=== PATIENT | female | born 1985 | race Caucasian/White ===

== ENCOUNTER → 2022-10-21 13:51 | Outpatient (BNVA) | payer OTHER, SELFPAY | PROVIDERS: PCP Internal Medicine; Visit Provider Nurse Practitioner Family | DX: G43.109 Migraine with aura, not intractable, without status migrainosus (principal); G47.9 Sleep disorder, unspecified | CPT/HCPCS: 99212 ==

== ENCOUNTER 2024-01-19 12:31 | Outpatient (AMB) | payer OTHER, SELFPAY ==
--- NOTE | 2024-01-19 13:02 | A.OFFVIS_ITS ---
Vital Signs 01/19/24 13:05 Height 5 ft 2 in Weight 233 lb BMI 42.6 BP 130/92 H Blood Pressure Location Rt brachial Position Sitting Pulse 91 Pulse Source Pulse Oximeter Pulse Oximetry (%) 100 Oxygen Delivery Method Room Air Intake Visit Reasons: f/u appt Intake Note: Patient presents for follow up. migraines are well controlled not getting them everyday as like before Allergies cats/mice Allergy (Unknown, Uncoded 01/19/24 13:06) Hives pollen/dust Allergy (Unknown, Uncoded 01/19/24 13:06) Unknown Medication List - Last Reconciled 01/19/24 by ARGENIS Wakefield ammonium lactate 12% topical BEDTIME budesonide mg inhalation BID budesonide-formoterol 160-4.5 mcg/actuation (Symbicort) 2 puffs inhalation BID wszpdhyzwy-rggrzdfbnyvrt-lhpy 50-325-40 mg 1 tab PO Q4H PRN 30 days cetirizine 10 mg PO Q12H PRN cyclobenzaprine 10 mg PO BEDTIME PRN cyclobenzaprine 10 mg PO BEDTIME ergocalciferol (vitamin D2) 1,250 mcg PO QWEEK escitalopram oxalate (Lexapro) 5 mg PO DAILY gabapentin 400 mg PO TID hydroxyzine HCl 25 mg PO BID PRN mometasone 0.1% appl topical BID PRN montelukast 10 mg PO DAILY omeprazole 40 mg PO DAILY rizatriptan 5 - 10 mg (0.5 - 1 x 10 mg) PO Q2H PRN 21 days sumatriptan succinate 50 - 100 mg orally at onset of headache, may repeat in 2 hrs PRN; max 2 tabs per day or 4 tabs/week (may take with Tylenol) 30 days topiramate 1 tab qhs x's 2 weeks then 2 tabs qhs orally bedtime; 30 days valacyclovir 500 mg PO BID HPI Comments Details: 38-yr-old female presents for f/u visit. Pt reports she has been having increased stress in the last year related to her child's health issues and work. She has also been having mid-chest pain, headaches, and depression. A few months ago, stopped most of her medications. She had stress test- which was normal. She has been started on escitalopram. She continues to have a daily headache with 3-4 migraine days per week. She has also been having a new headache since August- different from the daily headache or migraine. The pressure headache is in bifrontal, left temporal. A/w eye pain/pressure, ear pressure/pain, watery eyes, ear fullness/sound, bilateral jaw/teeth pain, allodynia, rarely (2-3 x's) worsening tingling in the left 4th/5th fingers. This can occur while sleeping or at work or driving. Cannot drive with this headache. Occurs 2-3 x's per week, but fluctuates week to week. Taking Fioricet 2-3 caps per week. The fioricet takes the pressure off of theses but the headache comes back after 6 hours or so. She stopped the topiramate- helped but stopped a few months ago, maybe in August, when she stopped her other meds. Rizatriptan does help- tends to take when she knows that the migraine will be more severe. Baseline migraine headache characteristics: Migraine can throbbing bifrontal or anywhere in the head a/w photophobia, phonophobia, N/V, beverly ear fullness, allodynia, activity intolerance. [facility] Medical History (Updated 01/19/24 @ 13:50 by ARGENIS Wakefield) BPPV (benign paroxysmal positional vertigo) Depression Asthma Anemia Surgical History History of bunionectomy History of right oophorectomy S/P gastric sleeve procedure H/O: hysterectomy Family History Father HTN (hypertension) Diabetes Stroke Anemia Arthritis Mother HTN (hypertension) Diabetes Social History Alcohol intake: never Patient Tobacco Use Status: Never used Tobacco Physical Exam Vital Signs: Last Vital Signs Pulse 91 01/19/24 13:05 BP 130/92 H 01/19/24 13:05 Pulse Ox 100 01/19/24 13:05 Oxygen Delivery Method Room Air 01/19/24 13:05 BMI result Body Mass Index 42.6 Const General: cooperative and no acute distress Orientation/consciousness: patient oriented x3 Resp Effort & Inspection: normal respiratory effort and able to speak in complete sentences Neuro General: patient oriented x3 Cranial nerves: Yes CN's II-XII intact bilaterally Cognition (Neuro): normal cognition Psych Appearance: grossly normal Mental Status: mental status grossly normal Speech and movement: Normal speech and movement present Affect: normal affect Attitude: cooperative Assessment & Plan Assessment & Plan (1) Migraine with aura: Code(s): G43.109 - Migraine with aura, not intractable, without status migrainosus Category: Medical (2) Eye pain: Code(s): H57.10 - Ocular pain, unspecified eye Category: Medical (3) New onset headache: Code(s): R51.9 - Headache, unspecified Category: Medical Plan Pt advised to undergo: Brain MRI w/wo d/t worsening headache w/ eye and ear pain. Optometry evaluation. For acute migraine tx: Continue Rizatriptan 10mg prn. Previous tx trials: Sumatriptan 100mg tab- not tolerated.. ? For migraine prevention: Resume Topiramate. Previous migraine tx trials- Amitriptyline- some effect but may cause weight gain. Migraine tx contraindications- BBs d/t symptomatic asthma dx ? For sleep difficulties- Hydroxyzine prn Pt may benefit from reading Say Mallory to Insomnia by Dr Jordan Figueroa or similar CBTi book. Orders: Orders MR head/brain wo/w con 01/19/24 H57.10 - Ocular pain, unspecified eye, H93.8X9 - Other specified disorders of ear, unspecified ear, R51.9 - Headache, unspecified Referrals Optometry Referral G43.109 - Migraine with aura, not intractable, without status migrainosus, H57.10 - Ocular pain, unspecified eye Medications: New magnesium oxide may hold for loose stools 400 mg PO BEDTIME 30 days 30 tabs 6RF alprazolam 0.25 mg orally 1 tab 30 minutes prior to MRI, may repeat x's 1; 1 day 2 tabs 0RF riboflavin (vitamin B2) 400 mg PO DAILY 30 days 30 tabs 6RF Refilled topiramate 1 tab qhs x's 2 weeks then 2 tabs qhs orally bedtime; 30 days 60 tabs 3RF rizatriptan max 2 tabs per day or 4 tabs per week 5 - 10 mg (0.5 - 1 x 10 mg) PO Q2H 21 days PRN 12 tabs 6RF migraine headache Discontinued sumatriptan succinate Discontinued Reason: Doctor's Order (0.5 - 1 x 100 mg) 50 - 100 mg orally at onset of headache, may repeat in 2 hrs PRN; max 2 tabs per day or 4 tabs/week (may take with Tylenol) 30 days 12 tabs 6RF migraine headache Coding Level of Care Code Est Pt Level 4 (71812) Diagnoses Migraine with aura G43.109 Eye pain H57.10 New onset headache R51.9
[2024-01-19 13:05] VITALS: BP 130/92; PULSE 91; O2SAT 100; BMI 42.6
== END 2024-01-19 13:56 | disposition home or self-care (01) ==
PROVIDERS: PCP Internal Medicine; Visit Provider Nurse Practitioner Family
DX: G43.109 Migraine with aura, not intractable, without status migrainosus (principal); H57.10 Ocular pain, unspecified eye; R51.9 Headache, unspecified
CPT/HCPCS: 99214

== ENCOUNTER → 2024-01-19 12:31 | Outpatient (BNVA) | payer OTHER, SELFPAY | PROVIDERS: PCP Internal Medicine; Visit Provider Nurse Practitioner Family | DX: G43.109 Migraine with aura, not intractable, without status migrainosus (principal); H57.10 Ocular pain, unspecified eye; R51.9 Headache, unspecified | CPT/HCPCS: 99212 ==

== ENCOUNTER 2025-01-11 08:00 | Outpatient (AMB) | payer OTHER, MEDICAID, SELFPAY ==
--- NOTE | 2025-01-11 08:02 | A.OFFVIS_ITS ---
Vital Signs 01/11/25 08:03 Height 5 ft 2 in Weight 246 lb 6 oz BMI 45.1 BP 122/82 Blood Pressure Location Lt brachial Position Sitting Pulse 94 Pulse Source Pulse Oximeter Pulse Oximetry (%) 100 Oxygen Delivery Method Room Air Intake Visit Reasons: Chronic migraine for 2mnths, nerve pain Intake Note: Patient presents follow up Migraine w0ouwyjb/nerve pain. MRI done 01/2024 Patient fiorocet 1 tab(Recently starting on wednesday)when gets migraine and helps. Very sensitive to sound and light pain in back of eyes. Wakes her up at night. 60/60 day migraine. Allergies cats/mice Allergy (Unknown, Uncoded 01/19/24 13:06) Hives pollen/dust Allergy (Unknown, Uncoded 01/19/24 13:06) Unknown Medication List - Last Reconciled 01/11/25 by ARGENIS Wakefield alprazolam 0.25 mg orally 1 tab 30 minutes prior to MRI, may repeat x's 1; 1 day ammonium lactate 12% topical BEDTIME baclofen 20 mg PO DAILY budesonide mg inhalation BID budesonide-formoterol 160-4.5 mcg/actuation (Symbicort) 2 puffs inhalation BID wnewpvqxnq-emekjyzrkytxr-deel 50-325-40 mg 1 tab PO Q4H PRN 30 days cetirizine 10 mg PO Q12H PRN cyclobenzaprine 10 mg PO BEDTIME PRN cyclobenzaprine 10 mg PO BEDTIME digital therapeutic,KINDRA device ([employer] Digital Marc (migraine)) Forty-five minute stimulation every other day for migraine prevention, and 45 minutes stimulation daily as needed at onset of migraine ergocalciferol (vitamin D2) 1,250 mcg PO QWEEK escitalopram oxalate (Lexapro) 5 mg PO DAILY gabapentin 400 mg PO TID hydroxyzine HCl 25 mg PO BID PRN magnesium oxide 400 mg PO BEDTIME 30 days mometasone 0.1% appl topical BID PRN montelukast 10 mg PO DAILY omeprazole 40 mg PO DAILY pregabalin 75 mg PO BEDTIME riboflavin (vitamin B2) 400 mg PO DAILY 30 days rizatriptan 5 - 10 mg (0.5 - 1 x 10 mg) PO Q2H PRN 21 days topiramate 1 tab qhs x's 2 weeks then 2 tabs qhs orally bedtime; 30 days valacyclovir 500 mg PO BID HPI Comments Details: 39-yr-old female presents for f/u visit for worsening migraine. 02/05/24, brain MRI w/wo was unremarkable, there were a few scattered non- specific white matter changes. Pt reports she has been having increased stress in the last year related to her child's health issues, family, and work. She reports she has had an increase in her migraines since the end of October, now daily. She is also reporting increased fibromyalgia s/s. She also reports she is having a feeling of a the inferior cluneal nerve and pudendal nerve pain in the vaginal, rectal, and thigh, during bowel movement. She was recently on prednsione for her thyroid region swelling- and this did not not help the headaches. Also notes recent labs showed low vit D- she has supplement but has not taken recently. And HLD- waiting to hear back from PCP. Taking Fioricet 2-3 caps per week. The fioricet takes the pressure off of theses but the headache comes back after 6 hours or so. She denies HTN. BP is normotensive today, She stopped the topiramate- not tolerated, she forgot to take it, a she was taking care of every one else. Amitriptyline was previously not tolerated. Rizatriptan usually helps, but not lately. So she has just restarted her Fioricet, which helps some. Baseline migraine headache characteristics: Migraine can throbbing bifrontal or anywhere in the head a/w photophobia, phonophobia, N/V, eye pain/pressure, ear pressure/pain, watery eyes, ear fullness/sound, bilateral jaw/teeth pain, allodynia, activity intolerance. [facility] Medical History BPPV (benign paroxysmal positional vertigo) Depression Asthma Anemia Surgical History History of bunionectomy History of right oophorectomy S/P gastric sleeve procedure H/O: hysterectomy Family History Father HTN (hypertension) Diabetes Stroke Anemia Arthritis Mother HTN (hypertension) Diabetes Social History Alcohol intake: never Patient Tobacco Use Status: Never used Tobacco Physical Exam Vital Signs: Last Vital Signs Pulse 94 01/11/25 08:03 BP 122/82 01/11/25 08:03 Pulse Ox 100 01/11/25 08:03 Oxygen Delivery Method Room Air 01/11/25 08:03 BMI result Body Mass Index 45.1 Const General: cooperative and no acute distress Orientation/consciousness: patient oriented x3 Resp Effort & Inspection: normal respiratory effort and able to speak in complete sentences Neuro General: patient oriented x3 Cranial nerves: Yes CN's II-XII intact bilaterally Cognition (Neuro): normal cognition Psych Appearance: grossly normal Mental Status: mental status grossly normal Speech and movement: Normal speech and movement present Affect: normal affect Attitude: cooperative Assessment & Plan Assessment & Plan (1) Migraine with aura: Code(s): G43.109 - Migraine with aura, not intractable, without status migrainosus Category: Medical Qualifiers: Status migrainosus presence: with status migrainosus Intractability: intractable Qualified Code(s): G43.111 - Migraine with aura, intractable, with status migrainosus (2) Eye pain: Code(s): H57.10 - Ocular pain, unspecified eye Category: Medical (3) Sleep difficulties: Comment: 2019- PSG- normal w/ AHI2.3/hr, O2 alia 93%, PLMS1.7/hr w/ PLMS arousal index of 1.4/hr. 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 For general headcahe management- Resume her home vit D supplement Consider statin tx- through PCP Try OtC tear gtts for dry eye/watery eyes For acute migraine tx: Continue Rizatriptan 10mg prn. May continue prn Fioricet- sparingly. Trial Trudhessa- 1 actuation in each nostril x1, may repeat dose x1 after 1h intranasally once; (Max: 4 actuations/day, 6 actuations/wk). Do NOT take w/in 24 hrs of a TRIPTAN. Previous tx trials: Sumatriptan 100mg tab- not tolerated.. ? For migraine prevention: Discontinue Topiramate- not tolerated Start Emgality 120mg/ml auto-injection: Loading dose: 240mg (2 120mg/ml auto-injections) via subcutaneous injection in 2 different sites). Then 30 days after loading dose, start Maintenance dose: 120mg (120mg/ml autoinjector) subcutaneous injection every month. Patient requests injection training once Emgality available. Important considerations: * Emgality will likely require insurance prior authorization prior to receiving it from the pharmacy. * Potential side effects include allergic reaction and injection site reactions. * Emgality injection training educational video is available to view on [employer] * Store Emgality in the refrigerator in it's original packaging in order to protect from light. * Remove Emgality at least 1 hour prior to taking the injection. * Emgality can be left out of the fridge for?up to 7 days at a temperature not above 86?F. If either of these conditions are exceeded, then Emgality must be thrown away. * Once Emgality has been stored out of refrigeration, do not place it back in the refrigerator. Previous migraine tx trials- Amitriptyline- some effect but may cause weight gain. Topiramate- not tolerated Migraine tx contraindications- BBs d/t symptomatic asthma dx ? For sleep difficulties- Hydroxyzine prn Medications: New galcanezumab-gnlm (Emgality Pen) Loading dose: 120 mg subcu injection x2 in alternate sites (total 240 mg). To be followed by maintenance dose of 120 mg subcu q.month. 240 mg (2 mL) subcut ONCE 2 mL 0RF 30 days dihydroergotamine (Trudhesa) 1 actuation in each nostril x1, may repeat dose x1 after 1h intranasally once; (Max: 4 actuations/day, 6 actuations/wk). Do NOT take w/in 24 hrs of a TRIPTAN. 4 mL 6RF prolonged migraine 28 days G43.109 - Migraine with aura, not intractable, without status migrainosus Changed From riboflavin (vitamin B2) 400 mg PO DAILY 30 days 30 tabs 6RF To riboflavin (vitamin B2) 400 mg PO DAILY 90 tabs 3RF 90 days From magnesium oxide may hold for loose stools 400 mg PO BEDTIME 30 days 30 tabs 6RF To magnesium oxide may hold for loose stools 400 mg PO BEDTIME 90 tabs 3RF 90 days Refilled rizatriptan max 2 tabs per day or 4 tabs per week 5 - 10 mg (0.5 - 1 x 10 mg) PO Q2H PRN 12 tabs 6RF migraine headache 21 days Discontinued topiramate Discontinued Reason: Doctor's Order 1 tab qhs x's 2 weeks then 2 tabs qhs orally bedtime; 30 days 60 tabs 3RF Coding Level of Care Code Est Pt Level 4 (82228) Diagnoses Intractable migraine with aura with status migrainosus G43.111 Status migrainosus presence: with status migrainosus Intractability: intractable Eye pain H57.10 Sleep difficulties G47.9 Vitamin D deficiency E55.9
[2025-01-11 08:03] VITALS: BP 122/82; PULSE 94; O2SAT 100; BMI 45.1
--- OUTSIDE RECORDS SUMMARY | 2025-01-11 08:03 | XMS_ITS ---
Author Name [facility] Organization Unknown Care Team Organization Name Specialty Phone Email Start Date End Da te [facility] 04/21/2022 01/31/2024
== END 2025-01-11 08:50 | disposition home or self-care (01) ==
LOC: HO.HSMS 08:00
PROVIDERS: PCP Internal Medicine; Visit Provider Nurse Practitioner Family
DX: G43.111 Migraine with aura, intractable, with status migrainosus (principal); H57.10 Ocular pain, unspecified eye; G47.9 Sleep disorder, unspecified; E55.9 Vitamin D deficiency, unspecified
CPT/HCPCS: 99214